=== PATIENT | female | born 1950 | race Caucasian/White ===

== ENCOUNTER 2016-08-13 14:06 | Observation (INO) | payer MEDICARE, OTHER ==
--- NOTE | ~2016-08-13 | HP ---
History And Physical [facility] [address] [place]. [address] NAME: ANIKA LARSEN : [birth year] STATUS : DIS Cl PAT#: [id number] AGE: 65 ADM/REG DATE : 08/13/16 MR#: [id number] REPORT SERV DATE: 08/14/16 DICTATED BY: DATE: REPORT STATUS : Draft TRANSCRIBED BY: MODL DATE: 08/14/16 DATE OF ADMISSION: 08/13/2016 PRIMARY CARE PROVIDER: She sees Dr. Megan Cuadra' nurse practitioner, . She has seen wage and hour investigator, Dr. Victoria, in the past. CHIEF COMPLAINT: Chest pressure. HISTORY OF PRESENT ILLNESS: This is a 65-year-old white female with a history of hiatal hernia, hypertension, anxiety, and depression. On Sunday, she reports to have had a sharp nickel-sized pain that she can pinpoint in her left lateral that went away after taking Aleve. Along with that symptom in the last week, the patient reports after travelling back from [place] where she stayed for about 10 days, she had felt extremely fatigued. The patient reports with ambulation getting diaphoretic and short of breath with increased chest pressure that worsens at night. Sleeping relives her pain/pressure. She denies the pressure radiating anywhere. Currently, she has no shortness of breath, no chest pain, no palpitations, no orthopnea, and no edema. She reports all of her symptoms have been resolved. She did report to have had a stress test with an echo that was negative approximately two years ago. The patient denies any personal history of myocardial infarction, stroke, DVT, or pulmonary embolus. The patient denies any recent fevers, chills, palpitations, or syncopal episodes. PAST MEDICAL HISTORY: Hypertension, she reports to have taken losartan for it; depression; anxiety; hiatal hernia; OA. 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 SOCIAL HISTORY: She is with three children. She does not smoke. No alcohol except for occasional, no drug use. 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 She walks about three miles four or five days a week, and she reports recently she has felt very fatigued to do that. FAMILY HISTORY: She has no family history of any cardiovascular problems. REVIEW OF SYSTEMS: A 14-point review of systems was performed, significant for HPI. No other contributory diagnoses identified. ALLERGIES: SHE IS ALLERGIC TO PENICILLIN, IT MAKES HER ITCH AND HIVES; SULFA, SHE DEVELOPS HIVES; MORPHINE, NAUSEA AND VOMITING; CODEINE, HEADACHE AND ITCH. HOME MEDICATIONS: Losartan 25 mg p.o. daily, Wellbutrin-XL 300 mg p.o. daily, multivitamin one p.o. daily, omega-3 fatty acid 1000 mg p.o. twice a day, glucosamine chondroitin one tablet p.o. twice a day, Singulair 10 mg p.o. at bedtime, capsule one capsule p.o. at bedtime, capsule one capsule p.o. twice a day, calcium History And Physical [address] [address] NAME: ANIKA LARSEN : [birth year] STATUS : DIS Cl PAT#: [id number] AGE: 65 ADM/REG DATE : 08/13/16 MR#: [id number] REPORT SERV DATE: 08/14/16 DICTATED BY: DATE: REPORT STATUS : Draft TRANSCRIBED BY: LILIANE DATE: 08/14/16 plus vitamin D 500 mg p.o. twice a day, Xyzal 5 mg p.o. at bedtime, and ascorbic acid 500 mg p.o. daily. PHYSICAL EXAMINATION: GENERAL: Cooperative, in no apparent distress. HEENT: Head normocephalic, anicteric. Normal EOM. PERRLA. No xanthelasma. Nares patent. Moist mucous membranes. NECK: Trachea midline. No thyromegaly, JVD or bruits. RESPIRATORY: Clear to auscultation bilaterally anterior and posterior. Respirations even and unlabored. No wheezes, rhonchi or crackles. CARDIOVASCULAR: Regular rate and rhythm. No murmur, rub or gallop appreciated. No chest wall tenderness to palpation. ABDOMEN: Soft, nontender, nondistended, normal bowel sounds auscultated throughout. No masses or organomegaly. EXTREMITIES: No peripheral edema. DP/PT and radial pulses palpable bilaterally. No clubbing or cyanosis. SKIN: Warm, dry and intact. Normal turgor. No pallor or cyanosis. NEURO/PSYCH: Alert, oriented x3 with no acute distress. Affect appropriate to current situation. LABORATORY DATA: Troponin x2 less than 0.02. Sodium 145, potassium 3.7, BUN 17, creatinine 0.86, GFR 82, glucose 102, calcium 8.9, magnesium 2.0. White blood cells 9.4, hemoglobin 13.6, hematocrit 39.9, platelets 277. INR 1.0. BNP 33.6. Her chest x-ray shows stable calcified lymph nodes and AP window, stable thoracic spine DJD, lungs clear. Her EKG shows sinus rhythm. No significant changes from an EKG in 01/2015. Her echo done 01/13/2015 showed normal left ventricular systolic function. EF 55%. No significant valvular disease. Stress test dated 01/13/2015 showed Luis Alberto stage 3, achieved 96% on maximum heart rate. Negative treadmill. Overall, low-risk stress test. CTA done 08/13/2016 showed lungs clear. No PE. Coronaries ascending and descending, thoracic aorta normal. Degenerative changes in the thoracic spine noted. There is a hiatal hernia, splenic granulomata, large amount of calcification in the area consistent with prior granulomatous exposure. ASSESSMENT AND PLAN: 1. Atypical chest pain and pressure. Currently, she denies any chest pain. Troponin x2 have been negative. We will plan a today. Keep her n.p.o. If stress test is low risk or shows no ischemia, she may be discharged home and follow up with her PCP in one or two weeks with all the studies being sent to the office. If anything suggestive of ischemia, Cardiology referral will be initiated. 2. Hiatal hernia. The patient is aware of the hiatal hernia. We will defer to PCP. If History And Physical [address] [place] [place] [address] NAME: ANIKA LARSEN : [birth year] STATUS : DIS Cl PAT#: [id number] AGE: 65 ADM/REG DATE : 08/13/16 MR#: [id number] REPORT SERV DATE: 08/14/16 DICTATED BY: DATE: REPORT STATUS : Draft TRANSCRIBED BY: MODLis DATE: 08/14/16 treadmill stress test is negative, the patient would need to see her PCP due to possible hiatal hernia causing her symptoms. 3. High-blood pressure. We will address her home medications. 4. Osteoarthritis, appears to be stable. She denies any pain. Lying comfortably in bed. 5. Depression. She is currently on Wellbutrin and does not appear depressed per assessment. We will defer that to PCP for management. 6. History of anxiety. The patient is not anxious at this time. We will defer to PCP for management of any further events. EKS/MODL Tonia Goddard APN / [id number] CC: Gregoria Payne, MSN, [employer] Megan CUADRA
[2016-08-13 13:25] LABS: BASOPHILS 1.5 %; BASOPHILS ABSOLUTE 0.14 10/3/uL (0.0-0.16); EOSINOPHILS 8.4 %; EOSINOPHILS ABSOLUTE 0.79 10/3/uL (0.0-0.53); HEMATOCRIT 39.9 % (36.0-48.0); HEMOGLOBIN 13.6 g/dL (12.0-16.0); IMMATURE GRANULOCYTES 0.3 %; IMMATURE GRANULOCYTES ABSOLUTE 0.03 10/3/uL (0.0-0.11); LYMPHOCYTES 23.2 %; LYMPHOCYTES ABSOLUTE 2.18 10/3/uL (0.67-4.30); MANUAL DIFF NO %; MEAN CORPUS HGB CONC 34.1 g/dL (32.0-36.0); MEAN CORPUSCULAR HEMOGLOB 30.1 pg (26.0-34.0); MEAN CORPUSCULAR VOLUME 88.3 fL (80-100); MEAN PLATELET VOLUME 10.9 fL (9.2-13.0); MONOCYTES 9.5 %; MONOCYTES ABSOLUTE 0.89 10/3/uL (0.21-1.20); NEUTROPHILS 57.1 %; NEUTROPHILS ABSOLUTE 5.37 10/3/uL (2.02-8.40); PLATELET COUNT 277 10/3/uL (150-400); RBC DISTRIBUTION WIDTH 13.8 % (12.0-16.0); RED CELL COUNT 4.52 10/6/uL (4.0-5.6); WHITE BLOOD CELLS 9.4 10/3/uL (4.5-10.5)
[2016-08-13 13:37] LABS: PROTIME (NOT ORD) 12.8 SEC (12.0-14.5)
[2016-08-13 13:39] LABS: D-DIMER QUANTITATIVE 0.67 ug/mLFEU (< 0.50)
[2016-08-13 13:42] LABS: BUN (BLOOD UREA NITROGEN) 17 MG/DL (6-23); CALCIUM, SERUM 8.9 MG/DL (8.5-10.4); CHEST PAIN PROFILE TAT 0 Hrs 21 Mins; CHLORIDE, SERUM 111 MMOL/L (96-112); CO2 (CARBON DIOXIDE) 27 MMOL/L (24-34); CREATININE 0.86 MG/DL (0.55-1.02); GFR AFRICAN AMERICAN 82 ML/MIN (>=60); GFR NON AFRICAN AMERICAN 70 ML/MIN (>=60); GLUCOSE, SERUM 102 MG/DL (60-99); POTASSIUM, SERUM 3.7 MMOL/L (3.5-5.3); SODIUM, SERUM 145 MMOL/L (135-148); TROPONIN I <0.02 NG/ML (<0.05)
[~2016-08-13 14:06] MED LIST: ASAB PO; MULTIVIT/MIN PO; SINGULAIR1 PO; SONATA10 MG PO; WELLXL300 PO; X25 PO
[2016-08-13] MEDS ORDERED: MULTIVITAMI1 PO (15:55)
[2016-08-13] MEDS ORDERED: COZ25 PO (15:55)
[2016-08-13] MEDS ORDERED: WELLXL300 PO (15:55)
[2016-08-13] MEDS ORDERED: SINGULAIR1 PO (15:56)
[2016-08-13] MEDS ORDERED: FISH-EPA1000 MG PO (15:56)
[2016-08-13] MEDS ORDERED: TUMERIC CAPSULE PO (15:56)
[2016-08-13] MEDS ORDERED: GLUCCHONDR PO (15:56)
[2016-08-13] MEDS ORDERED: VITC500 PO (15:57)
[2016-08-13] MEDS ORDERED: BOSWELLIA PO (15:57)
[2016-08-13] MEDS ORDERED: XYZAL5 MG PO (15:57)
[2016-08-13] MEDS ORDERED: OS500+D PO (15:57)
== END 2016-08-14 12:00 | disposition home or self-care (01) ==
LOC: ER 14:06 → CDU1 16:50 → CDU2 17:08
PROVIDERS: Emergency Medicine
DX: R07.89 Other chest pain (principal); I10 Essential (primary) hypertension; K44.9 Diaphragmatic hernia without obstruction or gangrene; F41.9 Anxiety disorder, unspecified; F32.9 Major depressive disorder, single episode, unspecified; M19.90 Unspecified osteoarthritis, unspecified site; Z98.890 Other specified postprocedural states; Z88.0 Allergy status to penicillin; Z88.2 Allergy status to sulfonamides; Z88.5 Allergy status to narcotic agent; Z79.899 Other long term (current) drug therapy
CPT/HCPCS: 71010; 71275; 80048; 83735; 83880; 84484; 85025; 85379; 85610; 85730; 93005; 93017; 99285; A9270-GY; G0378